=== PATIENT | female | born 2000 | race African-American/Black ===

== ENCOUNTER 2025-09-18 13:02 | Emergency (ER) | payer SELFPAY ==
--- NOTE | ~2025-09-18 | XR_ITS ---
EXAMINATION: XR chest 2V DATE: 09/18/2025 14:18 INDICATION: Chest pain, shortness of breath. TECHNIQUE: Frontal and lateral views of the chest were obtained. COMPARISON: None. FINDINGS: Heart size is normal. Lungs are free of acute process IMPRESSION: 1. No acute findings. Reviewed, dictated and finalized at location T. URY CRACKING TESTER IMPRESSION: 1. No acute findings.
--- OUTSIDE RECORDS SUMMARY | 2025-09-18 12:00 | XMS_ITS | Encounter Summary ---
Author Organization [facility] Healthcare Address [address] [place] [address] Care Team Providers Care Career And Transition Teacher Name Role Phone Unknown, Notinfile Primary Care Provider Unavail able Reason for Visit * Reason Comments Chest Pain Chest pains, chest f eels heavy, both ears feel full, headaches in the back of head x about a week and half Encounter Details Date Type Department Care Team (Late st Contact Info) Description 09/18/2025 12:00 PM TALENT ACQUISITION ADMINISTRATOR Office Visit [facility] Convenient Care at [address] [address] Fermín Parikh NP [address] [place] [address] [address] [place] [address] Chest tightness (Primary Dx); Nonintractable headache, unspecified chronicity pattern, unspecified headache type; Sensation of fullness in ear, bilateral; Shortness of breath Social History Tobacco Use Types Packs/Day Years Used Date Smoking Tobacco: Never Assessed Comments Unknown Sex and Gender Information Value Date Recorded Sex Assigned at Not on file Legal Sex Female 1:59 PM CDT Gender Identity Not on file Sexual Orientation Not on file documented as of this encounter Last Filed Vital Signs Vital Sign Reading Time Taken Comments Blood Pressure 119/80 09/18/2025 12:05 PM TALENT ACQUISITION ADMINISTRATOR Pulse 76 09/18/2025 12:05 PM TALENT ACQUISITION ADMINISTRATOR Temperature 37.4 C (99.3 F) 09/18/2025 12:05 PM TALENT ACQUISITION ADMINISTRATOR Respiratory Rate 16 09/18/2025 12:05 PM TALENT ACQUISITION ADMINISTRATOR Oxygen Saturation 99% 09/18/2025 12:05 PM TALENT ACQUISITION ADMINISTRATOR Inhaled Oxygen Concentration - - Weight 72.1 kg (159 lb) 09/18/2025 12:05 PM TALENT ACQUISITION ADMINISTRATOR Height - - Body Mass Index - - documented in this encounter Functional Status documented as of this encounter Plan of Treatment Not on file documented as of this encounter Procedures Procedure Name Priority Date/Time Associated Diagnosis Comments ELECTROCARDIOGRAM REPORT Routine 025 12:24 PM TALENT ACQUISITION ADMINISTRATOR Chest tightness documented in this encounter Results * XR Chest PA Lateral 2 Views (09/18/2025 12:36 PM TALENT ACQUISITION ADMINISTRATOR) Anatomical Region Laterality Modality Body, Chest N/A Digital Radiogra phy 09/18/2025 12:4 1 PM TALENT ACQUISITION ADMINISTRATOR Impressions 09/18/2025 12:41 PM TALENT ACQUISITION ADMINISTRATOR 1. No acute findings or infiltrate. Electronically signed by: Jonny Roca M.D. Narrative 09/18/2025 12:41 PM TALENT ACQUISITION ADMINISTRATOR EXAMINATION: XR CHEST PA LATERAL 2 VIEWS HISTORY: cough chest tightness TECHNIQUE: 2 view chest COMPARISON: No prior FINDINGS: Normal cardiomediastinal silhouette. Pulmonary vasculature is normal. No infiltrate or effusion. Costophrenic angles are sharp. No acute osseous findings. Procedure Note Jonny Roca MD - 09/18/2025 EXAMINATION: XR CHEST PA LATERAL 2 VIEWS HISTORY: cough chest tightness TECHNIQUE: 2 view chest COMPARISON: No prior FINDINGS: Normal cardiomediastinal silhouette. Pulmonary vasculature is normal. No infiltrate or effusion. Costophrenic angles are sharp. No acute osseous findings. IMPRESSION: 1. No acute findings or infiltrate. Electronically signed by: Jonny Roca M.D. us Fermín Parikh NP IMG XR PROCEDURES Final Result * Electrocardiogram Report (09/18/2025 12:24 PM TALENT ACQUISITION ADMINISTRATOR) us Fermín Parikh NP ECG ORDERABLES Final Result documented in this encounter Visit Diagnoses Diagnosis Chest tightness- Primary Other chest pain Nonintractable headache, unspecified chronicity pattern, unspecified headache type Sensation of fullness in ear, bilateral Shortness of breath Chest tightness Other chest pain documented in this encounter Care Teams Career And Transition Teacher Relationship Specialty Start Date End Date Unknown, Notinfile PCP - General 06/13/24 documented as of this encounter
--- OUTSIDE RECORDS SUMMARY | 2025-09-18 12:25 | XMS_ITS | Encounter Summary ---
Author Organization [facility] Healthcare Address [address] [place] [address] Care Team Providers Care Quality Control Manager Name Role Phone Unknown, Notinfile Primary Care Provider Unavail able Encounter Details Date Type Department Care Team (Latest Contact Info) Description 09/18/2025 12:25 PM RN CLINICAL RESEARCH Ancillary Procedure [facility] Medical Group Imaging at [address] [address] Chest tightness Social History Tobacco Use Types Packs/Day Years Used Date Smoking Tobacco: Never Assessed Comments Unknown Sex and Gender Information Value Date Recorded Sex Assigned at Not on file Legal Sex Female 1:59 PM CDT Gender Identity Not on file Sexual Orientation Not on file documented as of this encounter Functional Status documented as of this encounter Plan of Treatment Not on file documented as of this encounter Procedures Procedure Name Priority Date/Time Associated Diagnosis Comments XR CHEST PA LATERAL 2 VIEWS Schedule CARLO, Read CARLO (Appt Today, Awaiting Results) 09/18/2025 12:36 PM RN CLINICAL RESEARCH Chest tightness documented in this encounter Results * XR Chest PA Lateral 2 Views (09/18/2025 12:36 PM RN CLINICAL RESEARCH) Anatomical Region Laterality Modality Body, Chest N/A Digital Radiogra phy 09/18/2025 12:4 1 PM RN CLINICAL RESEARCH Impressions 09/18/2025 12:41 PM RN CLINICAL RESEARCH 1. No acute findings or infiltrate. Electronically signed by: Jonny Roca M.D. Narrative 09/18/2025 12:41 PM RN CLINICAL RESEARCH EXAMINATION: XR CHEST PA LATERAL 2 VIEWS [...] infiltrate. Electronically signed by: Jonny Roca M.D. Fermín Parikh WEBSITE DEVELOPER IMG XR PROCEDURES Final Result documented in this encounter Visit Diagnoses Diagnosis Chest tightness Other chest pain documented in this encounter Care Teams Quality Control Manager Relationship Specialty Start Date End Date Unknown, Notinfile PCP - General 06/13/24 documented as of this encounter
[2025-09-18 13:03] VITALS: BP 169/91; PULSE 106; RESP 18; TEMP 37.2; O2SAT 100
--- NOTE | 2025-09-18 13:10 | ECG_ITS ---
Test Date: 2025-09-18 13:13:54 Measurements Intervals Icard Rate: 102 P: 70 NC: 143 QRS: 19 QRSD: 78 T: -2 QT: 339 QTc: 442 Interpretive Statements SINUS TACHYCARDIA LOW QRS VOLTAGE IN PRECORDIAL LEADS [QRS DEFLECTION < 1.0 mV IN CHEST LEADS] ABNORMAL RHYTHM ECG No previous ECG available for comparison Electronically Signed On 09-18-2025 14:49:36 [employer] SYSTEMS ENGINEER by Omar Sifuentes M.D.
[2025-09-18 13:52] LABS: Hematocrit 37.2 % (37.0-47.0); Hemoglobin 12.1 g/dL (12.0-15.0); Immature Granulocyte Percent A 0.2 % (0-0.5); Lymphocytes Absolute Auto 1.83 K/mm3 (0.9-3.2); Mean Corpuscular HGB Conc 32.5 g/dl (32-36); Mean Corpuscular Hemoglobin 29.1 pg (26-34); Mean Corpuscular Volume 89.4 fl (80-100); Nucleated Red Blood Cells Absolute Auto 0.000 K/mm3 (0.0-0.012); Nucleated Red Blood Cells Perc 0.0 % (0.0-0.2); Platelet Count Result 257 k/mm3 (150-375); Red Blood Count 4.16 M/mm3 (4.2-5.4); White Blood Count 6.4 K/mm3 (4.5-10.0)
--- NOTE | 2025-09-18 13:52 | ED.CHESTPAIN ---
HPI - Chest Pain General Chief Complaint: Chest Pain Stated Complaint: chest pain Time Seen by Provider: 09/18/25 13:50 Focused HPI: Patient is a 24-year-old female who presents the ED with report of midsternal chest pain. Patient reports having pain intermittently for the past 1 week. States pain is described as a heaviness. Denies significant aggravating or alleviating factors. Does note that she has been under increased stress this week. Reports feeling short of breath with the pain, as well as a mild cough. Denies fevers, pain or swelling in her legs. GENERAL: Well-appearing, well-nourished, and in no acute distress. HEAD: Normocephalic, atraumatic. CHEST: Clear to auscultation. ?No respiratory distress. HEART: Regular rate and rhythm.? MSK: No significant chest wall tenderness NEURO: ?Alert and oriented x3. Patient screened in triage and initial orders placed.? ?Additional care and disposition to be based upon?diagnostic testing and treatment. Source: patient Mode of arrival: ambulatory Limitations: no limitations Related Data Allergies Allergy/AdvReac Type Severity Reaction Status Date / Time No Known Allergies Allergy Verified 09/18/25 19:02 Course Vital Signs Vital signs: Vital Signs Temperature 98.9 F 09/18/25 13:03 Pulse Rate 106 H 09/18/25 13:03 Respiratory Rate 18 09/18/25 13:03 Blood Pressure 169/91 H 09/18/25 13:03 Pulse Oximetry 100 09/18/25 13:03 Oxygen Delivery Room Air 09/18/25 13:03 Temperature 98.9 F 09/18/25 13:03 Pulse Rate 111 H 09/18/25 16:41 Respiratory Rate 20 09/18/25 16:41 Blood Pressure 140/83 09/18/25 16:41 Pulse Oximetry 99 09/18/25 16:41 Oxygen Delivery Room Air 09/18/25 16:41 MDM - Chest Pain MDM Narrative Medical decision making narrative: MSE by VANESSA in triage. Lab Data 09/18/25 13:45 09/18/25 13:45 Labs: Lab Results 09/18/25 09/18/25 Range/Units 13:45 17:23 WBC 6.4 (4.5-10.0) K/mm3 RBC 4.16 L (4.2-5.4) M/mm3 Hgb 12.1 (12.0-15.0) g/dL Hct 37.2 (37.0-47.0) % MCV 89.4 (80-100) fl MCH 29.1 (26-34) pg MCHC 32.5 (32-36) g/dl RDW 12.1 (11.5-14.5) % Plt Count 257 (150-375) k/mm3 MPV 10.9 H (7.4-10.4) fl Immature Gran % (Auto) 0.2 (0-0.5) % Neut % (Auto) 62.3 (45.5-73.1) % Lymph % (Auto) 28.8 (18.3-44.2) % [place] % (Auto) 6.3 (2.6-8.5) % Eos % (Auto) 1.9 (0-4.4) % Baso % (Auto) 0.5 (0.2-1.2) % Lymph # (Auto) 1.83 (0.9-3.2) K/mm3 [place] # (Auto) 0.4 (0.1-0.6) K/mm3 Eos # (Auto) 0.1 (0-0.3) K/mm3 Baso # (Auto) 0.0 (0.0-0.1) K/mm3 Abs Immat Gran (auto) 0.01 (0.00-0.031) K/mm3 Absolute Neuts (auto) 4.0 (1.3-6.7) K/mm3 Absolute Nucleated RBC 0.000 (0.0-0.012) K/mm3 Nucleated RBC % 0.0 (0.0-0.2) % PT 13.6 (11.1-14.7) Seconds INR 1.0 APTT 32.1 (22.3-36.8) Seconds D-Dimer < 0.27 (<0.48) ug/mL Sodium 136 L (137-145) mmol/L Potassium 3.8 (3.4-5.0) mmol/L Chloride 102 (98-107) mmol/L Carbon Dioxide 24 (22-30) mmol/L Anion Gap 10 (4-12) mmol/L BUN 7 (7-17) mg/dL Creatinine 0.88 (0.7-1.0) mg/dL Estim Creat Clear Calc 81 ml/min Estimated GFR > 60 (59 - ) Glucose 99 (65-110) mg/dL Calcium 9.3 (8.4-10.2) mg/dL Total Bilirubin 0.5 (0.2-1.3) mg/dL AST 31 (14-36) U/L ALT 13 (6-35) U/L Alkaline Phosphatase 88 (38-126) U/L Troponin I < 0.012 < 0.012 (0.000-0.034) ng/mL Total Protein 8.4 H (6.3-8.2) g/dL Albumin 4.8 (3.5-5.1) g/dL Lipase 49 (23-300) U/L Discharge Plan Discharge Clinical Impression: Chest pain, URI (upper respiratory infection) Patient Disposition: Home Condition: Stable Instructions: Chest Pain (ED), Viral Syndrome (ED) Additional Instructions: Patient has been advised to remain well-hydrated, get plenty of rest. Take Tylenol or Motrin [id number] for pain as needed. Return to the emergency department if symptoms worsen. Other reasons to return include shortness of breath, abdominal pain with nausea and vomiting, weakness, numbness/tingling, or any other symptoms that are concerning to you. Follow up with primary care doctor. Patient Language: Tristanian Follow-up/Referrals: PHYSICIAN,HYDRANT SETTER [Primary Care Provider, Internal Medicine]
[2025-09-18 14:03] LABS: INR 1.0; Partial Thromboplastin Time 32.1 Seconds (22.3-36.8); Prothrombin Time 13.6 Seconds (11.1-14.7)
[2025-09-18 14:09] LABS: Alanine Aminotransferase 13 U/L (6-35); Albumin Level 4.8 g/dL (3.5-5.1); Alkaline Phosphatase 88 U/L (38-126); Anion Gap 10 mmol/L (4-12); Aspartate Amino Transferase 31 U/L (14-36); Bilirubin,Total 0.5 mg/dL (0.2-1.3); Blood Urea Nitrogen 7 mg/dL (7-17); Calcium 9.3 mg/dL (8.4-10.2); Carbon Dioxide 24 mmol/L (22-30); Chloride 102 mmol/L (98-107); Estimated CRCL calculation 81 ml/min; Estimated Glomerular Filt Rate > 60; Glucose 99 mg/dL (65-110); Lipase 49 U/L (23-300); Potassium 3.8 mmol/L (3.4-5.0); Sodium 136 mmol/L (137-145); Total Protein 8.4 g/dL (6.3-8.2)
[2025-09-18 14:20] LABS: Troponin I < 0.012 ng/mL (0.000-0.034)
[2025-09-18 16:14] VITALS: BP 131/72; PULSE 85; RESP 20; O2SAT 99
[2025-09-18 16:41] VITALS: BP 140/83; PULSE 111; RESP 20; O2SAT 100; O2SAT 99
--- NOTE | 2025-09-18 17:23 | ECG_ITS ---
Test Date: 2025-09-18 17:27:00 Measurements Intervals [place] Rate: 83 P: 61 CA: 153 QRS: 10 QRSD: 73 T: -1 QT: 357 QTc: 420 Interpretive Statements SINUS RHYTHM LOW QRS VOLTAGE IN PRECORDIAL LEADS [QRS DEFLECTION < 1.0 mV IN CHEST LEADS] OTHERWISE NORMAL ECG Compared to ECG 09/18/2025 13:13:54 HEART RATE REDUCED, NO OTHER DIFFERENCE Electronically Signed On 09-19-2025 07:51:21 [employer] by Jonny Woodward M.D.
[2025-09-18 17:52] LABS: Troponin I < 0.012 ng/mL (0.000-0.034)
--- NOTE | 2025-09-18 18:29 | ED_ITS ---
HPI - General Adult General Chief complaint: Chest Pain Stated complaint: chest pain Time Seen by Provider: 09/18/25 13:50 Source: patient Mode of arrival: ambulatory Limitations: no limitations History of Present Illness HPI narrative: 24-year-old female presenting with substernal chest pain congestion for the last week. She reports the pain radiates to her shoulder as well as some postnasal drip. Denies fevers/chills, cough, abdominal pain, headache, nausea/vomiting/diarrhea. No history of asthma or smoking. Review of Systems 2 Review of Systems: All systems reviewed & are unremarkable except as noted in HPI and below Exam 2 Narrative: GENERAL: Well-appearing, well-nourished, and in no acute distress. HEAD: Normocephalic, atraumatic. EYES: PERRLA and EOMI. ENT: Nares clear, no rhinorrhea or epistaxis. Mucous membranes moist. Oropharynx without tonsillar hypertrophy exudate or other lesions. Bilateral TMs pearly ortega non-bulging NECK: Supple. No adenopathy or masses. No carotid bruits or JVD CHEST: Clear to auscultation. No respiratory distress. No wheezes rales or rhonchi HEART: Regular rate and rhythm. No murmur heard. Normal peripheral pulses. ABDOMEN: Soft, nontender, nondistended, normal active bowel sounds. EXTREMITIES: Normal range of motion. No edema. SKIN: Warm, dry, no rash. NEURO: No focal deficits. Alert and oriented x3. PSYCH: Normal mood and affect Course Vital Signs Vital signs: Vital Signs Temperature 98.9 F 09/18/25 13:03 Pulse Rate 106 H 09/18/25 13:03 Respiratory Rate 18 09/18/25 13:03 Blood Pressure 169/91 H 09/18/25 13:03 Pulse Oximetry 100 09/18/25 13:03 Oxygen Delivery Room Air 09/18/25 13:03 Temperature 98.9 F 09/18/25 13:03 Pulse Rate 111 H 09/18/25 16:41 Respiratory Rate 20 09/18/25 16:41 Blood Pressure 140/83 09/18/25 16:41 Pulse Oximetry 99 09/18/25 16:41 Oxygen Delivery Room Air 09/18/25 16:41 Medical Decision Making [facility] Narrative Medical decision making narrative: 24-year-old female presenting with substernal chest pain and congestion for the last week. She reports the pain is radiating to her shoulder as well as some postnasal drip. Denies fevers/chills, cough, abdominal pain, headache, nausea/vomiting/diarrhea. No history of asthma or smoking. Patient's EKGs and labs are without significant high risk changes. EKG w/o acute ischemic changes. Troponin negative. Cardiac risk factors reviewed. HEART score = 0. Patient is felt likely low risk for ACS and reasonable for further risk stratification testing as an outpatient. Pain was not sudden or maximal in onset without tearing or ripping quality. No other signs or symptoms to suggest aortic dissection. A low-risk Wells criteria is noted, PE is felt to be unlikely, D- dimer WNL. No pneumonia seen on evaluation today. Patient is felt to be a reasonable candidate for continued evaluation as an outpatient. Given reasons to return. Medical Records Medical records reviewed: Yes I reviewed the external patient's medical records. Vital Signs Vital Signs: Vital Signs Temperature 98.9 F 09/18/25 13:03 Pulse Rate 106 H 09/18/25 13:03 Respiratory Rate 18 09/18/25 13:03 Blood Pressure 169/91 H 09/18/25 13:03 Pulse Oximetry 100 09/18/25 13:03 Oxygen Delivery Room Air 09/18/25 13:03 Temperature 98.9 F 09/18/25 13:03 Pulse Rate 111 H 09/18/25 16:41 Respiratory Rate 20 09/18/25 16:41 Blood Pressure 140/83 09/18/25 16:41 Pulse Oximetry 99 09/18/25 16:41 Oxygen Delivery Room Air 09/18/25 16:41 Lab Data Lab results reviewed: Yes I reviewed the patient's lab results. 09/18/25 13:45 09/18/25 13:45 Labs: Lab Results 09/18/25 09/18/25 Range/Units 13:45 17:23 WBC 6.4 (4.5-10.0) K/mm3 RBC 4.16 L (4.2-5.4) M/mm3 Hgb 12.1 (12.0-15.0) g/dL Hct 37.2 (37.0-47.0) % MCV 89.4 (80-100) fl MCH 29.1 (26-34) pg MCHC 32.5 (32-36) g/dl RDW 12.1 (11.5-14.5) % Plt Count 257 (150-375) k/mm3 MPV 10.9 H (7.4-10.4) fl Immature Gran % (Auto) 0.2 (0-0.5) % Neut % (Auto) 62.3 (45.5-73.1) % Lymph % (Auto) 28.8 (18.3-44.2) % [place] % (Auto) 6.3 (2.6-8.5) % Eos % (Auto) 1.9 (0-4.4) % Baso % (Auto) 0.5 (0.2-1.2) % Lymph # (Auto) 1.83 (0.9-3.2) K/mm3 [place] # (Auto) 0.4 (0.1-0.6) K/mm3 Eos # (Auto) 0.1 (0-0.3) K/mm3 Baso # (Auto) 0.0 (0.0-0.1) K/mm3 Abs Immat Gran (auto) 0.01 (0.00-0.031) K/mm3 Absolute Neuts (auto) 4.0 (1.3-6.7) K/mm3 Absolute Nucleated RBC 0.000 (0.0-0.012) K/mm3 Nucleated RBC % 0.0 (0.0-0.2) % PT 13.6 (11.1-14.7) Seconds INR 1.0 APTT 32.1 (22.3-36.8) Seconds D-Dimer < 0.27 (<0.48) ug/mL Sodium 136 L (137-145) mmol/L Potassium 3.8 (3.4-5.0) mmol/L Chloride 102 (98-107) mmol/L Carbon Dioxide 24 (22-30) mmol/L Anion Gap 10 (4-12) mmol/L BUN 7 (7-17) mg/dL Creatinine 0.88 (0.7-1.0) mg/dL Estim Creat Clear Calc 81 ml/min Estimated GFR > 60 (59 - ) Glucose 99 (65-110) mg/dL Calcium 9.3 (8.4-10.2) mg/dL Total Bilirubin 0.5 (0.2-1.3) mg/dL AST 31 (14-36) U/L ALT 13 (6-35) U/L Alkaline Phosphatase 88 (38-126) U/L Troponin I < 0.012 < 0.012 (0.000-0.034) ng/mL Total Protein 8.4 H (6.3-8.2) g/dL Albumin 4.8 (3.5-5.1) g/dL Lipase 49 (23-300) U/L Imaging Data Attestation: I personally reviewed and interpreted this imaging study as follows: Radiologist's impression: ITS Impressions Chest X-Ray 09/18/25 14:20 IMPRESSION: 1. No acute findings. ECG Data EKG #1: ECG completion date: 09/18/25 ECG completion time: 13:13 EKG Interpretation: normal rate, sinus rhythm and no ST changes Discharge Plan Discharge Clinical Impression: Chest pain, URI (upper respiratory infection) Patient Disposition: Home Condition: Stable Instructions: Chest Pain (ED), Viral Syndrome (ED) Additional Instructions: Patient has been advised to remain well-hydrated, get plenty of rest. Take Tylenol or Motrin [id number] for pain as needed. Return to the emergency department if symptoms worsen. Other reasons to return include shortness of breath, abdominal pain with nausea and vomiting, weakness, numbness/tingling, or any other symptoms that are concerning to you. Follow up with primary care doctor. Patient Language: Slovenian Follow-up/Referrals: PHYSICIAN,DECALER [Primary Care Provider, Internal Medicine] Quality HEART score for chest pain patients History: slightly suspicious ECG: normal Age: < or = to 45 years Risk factors: no risk factors known Troponin: < or = to 1x normal limit Heart score: 0
[2025-09-18] MEDS: ACETAMINOPHEN 500 MG TABLET 1000 MG PO (19:00)
[2025-09-18] MEDS: KETOROLAC 30 MG/ML VIAL (*BKC) IM (19:01)
--- OUTSIDE RECORDS SUMMARY | 2025-09-18 19:03 | XMS_ITS | Encounter Summary ---
Author Organization [facility] Address [address] [place] [address] Care Team Providers Care Brick Unloader Tender Name Role Phone Unavailable Primary Care Provider Unavailabl e Source Comments In the event that this information is protected by federal Confidentiality ofSubstance Use DisorderPatient Records, 42 CFR Part 2 prohibits theunauthorized disclosure of these records.[facility] Encounter Details Date Type Department Care Team (Late st Contact Info) Description 09/14/2022 Lab Requisition [place] Pathology [address] [place], [place] [id number] Judy Aguirre, JOAO [address] [address] Unspecified sexually transmitted disease Social History Tobacco Use Types Packs/Day Years Used Date Smoking Tobacco: Never Assessed Comments Unknown Sex and Gender Information Value Date Recorded Sex Assigned at Not on file Legal Sex Female 6:09 PM TOWER EXCAVATOR OPERATOR Gender Identity Not on file Sexual Orientation Not on file documented as of this encounter Plan of Treatment Not on file documented as of this encounter Procedures Procedure Name Priority Date/Time Associated Diagnosis Comments HEALTHLAB VENIPUNCTURE (CDH/DCH/KH/VWH) Routine 09/14/2022 12:17 PM TOWER EXCAVATOR OPERATOR Unspecified sexually transmitted disease HEPATITIS C ANTIBODY, REFLEX CONFIRMATION (WEST/NORTH/CENTRAL/P H) Routine 09/14/2022 12:17 PM TOWER EXCAVATOR OPERATOR Unspecified sexually transmitted disease HIV ANTIGEN/ANTIBODY,REFL EX CONFIRMATION Routine 09/14/2022 12:17 PM TOWER EXCAVATOR OPERATOR Unspecified sexually transmitted disease HEPATITIS B CORE AB, IGM Routine 09/14/2022 12:17 PM TOWER EXCAVATOR OPERATOR Unspecified sexually transmitted disease HEPATITIS B SURFACE ANTIGEN Routine 09/14/2022 12:17 PM TOWER EXCAVATOR OPERATOR Unspecified sexually transmitted disease SYPHILIS,RPR SCREEN,REFLEX TITER/CONFIRMATION ([facility]) Routine 09/14/2022 12:17 PM TOWER EXCAVATOR OPERATOR Unspecified sexually transmitted disease documented in this encounter Results * *HealthLab Venipuncture ([facility]/DCH/KH/VWH) (09/14/2022 12:17 PM TOWER EXCAVATOR OPERATOR) Pathologist [facility] Venipucture Performed? Yes 09/14/2022 8:04 PM TOWER EXCAVATOR OPERATOR [facility] Blood VEIN SPECIMEN / Unknown 09/14/2022 12:17 PM TOWER EXCAVATOR OPERATOR 09/14/2022 6:09 PM TOWER EXCAVATOR OPERATOR Judy Aguirre NP CHEMISTRY ORDERABLES Final Resu lt Performing Organization Address [facility] Co de Phone Number [facility] [address] [place] [address] * Hepatitis B Surface Ag (09/14/2022 12:17 PM TOWER EXCAVATOR OPERATOR) Pathologist [facility] Hepatitis B Surface Antigen Non-reacti ve Non-react vahid 09/15/2022 3:49 AM TOWER EXCAVATOR OPERATOR [facility] Comment:This assay was perfo rmed using [employer] reagents and test kits. Values obtained with other assay methods or kits cannot be used interchangeably. Blood VEIN SPECIMEN / Unknown 09/14/2022 12:17 PM TOWER EXCAVATOR OPERATOR 09/15/2022 3:19 AM TOWER EXCAVATOR OPERATOR Judy Aguirre NP IMMUNOLOGY ORDERABLES Final Res ult Performing Organization Address [facility] Co de Phone Number [facility] [address] [place] [address] * Syphilis, RPR Screen, Reflex Titer/FTA ([facility]/DCH/KH/PH) (09/14/2022 12:17 PM TOWER EXCAVATOR OPERATOR) Pathologist [facility] RPR Screen Nonreactive Nonreactive 09/15/2022 1:55 PM TOWER EXCAVATOR OPERATOR [facility] Blood VEIN SPECIMEN / Unknown 09/14/2022 12:17 PM TOWER EXCAVATOR OPERATOR 09/15/2022 3:19 AM TOWER EXCAVATOR OPERATOR Judy Aguirre EXPERIENCE SPECIALIST IMMUNOLOGY ORDERABLES Final Res ult Performing Organization Address City/[facility]/ZIP Co de Phone Number [facility] [address], [place] [id number] * HIV 1/2 Antigen/Antibody,Reflex Confirmation (09/14/2022 12:17 PM TOWER EXCAVATOR OPERATOR) HIV Ag/Ab NON-REACT VAHID NON-REACT VAHID 09/16/2022 3:38 AM TOWER EXCAVATOR OPERATOR [facility] JOLENE TEJADA Comment: HIV-1 antigen and HIV-1/HIV-2 antibodies were not detected. There is no laboratory evidence of HIV infection. PLEASE NOTE: This information has been disclosed to you from records whose confidentiality may be protected by state law. If your state requires such protection, then the state law prohibits you from making any further disclosure of the information without the specific written consent of the person to whom it pertains, or as otherwise permitted by law. A general authorization for the release of medical or other information is NOT sufficient for this purpose. For additional information please refer to http://education.[employer]/faq/ZBH934 (This link is being provided for informational/ educational purposes only.) The performance of this assay has not been clinically validated in patients less than 2 years old. Blood VEIN SPECIMEN / Unknown 09/14/2022 12:17 PM TOWER EXCAVATOR OPERATOR 09/15/2022 3:19 AM TOWER EXCAVATOR OPERATOR Narrative [employer] JOLENE TEJADA - 09/16/2022 3:38 AM TOWER EXCAVATOR OPERATOR Performing Organization Information: Site ID: CB Name: [facility] Address: [address] [place] [id number] Director: Victoriano Piña M.D. Judy Aguirre NP CHEMISTRY ORDERABLES Final Resu lt Performing Organization Address [facility]/ZIP Co de Phone Number [facility]OL[facility] TEJ[facility] [address] [place], [place] [id number] * Hepatitis B Core Ab, IgM ([facility]) (09/14/2022 12:17 PM TOWER EXCAVATOR OPERATOR) Hepatitis B Core IgM Antibody Negative Negative 09/15/2022 9:16 PM TOWER EXCAVATOR OPERATOR [facility] Blood VEIN SPECIMEN / Unknown 09/14/2022 12:17 PM TOWER EXCAVATOR OPERATOR 09/15/2022 3:19 AM TOWER EXCAVATOR OPERATOR us Judy Aguirre EXPERIENCE SPECIALIST IMMUNOLOGY ORDERABLES Final Res ult [facility] [address] [place] [address] * Hepatitis C Antibody,Reflex Confirmation (West/North/Central/) (09/14/2022 12:17 PM TOWER EXCAVATOR OPERATOR) Hepatitis C Antibody Non-reacti ve Non-react vahid 09/15/2022 3:49 AM TOWER EXCAVATOR OPERATOR [facility] Comment:Antibodies to HCV No t Detected, does not exclude the possibility of exposure to HCV. Blood VEIN SPECIMEN / Unknown 09/14/2022 12:17 PM TOWER EXCAVATOR OPERATOR 09/15/2022 3:19 AM TOWER EXCAVATOR OPERATOR us Judy Aguirre NP IMMUNOLOGY ORDERABLES Final Res ult Performing Organization Address City/[facility]/ZIP Co de Phone Number [facility] [address] [place] [address] documented in this encounter Visit Diagnoses Diagnosis Unspecified sexually transmitted disease documented in this encounter
--- OUTSIDE RECORDS SUMMARY | 2025-09-18 19:03 | XMS_ITS | Clinical Summary ---
Author Organization [facility] Address [address] [place] [address] Care Team Providers Care Physician/Internist Name Role Phone Lisette Hairston MD Primary Care Provider [phone] Allergies No known active allergies Medications clindamycin-evette zoyl peroxide 1-5 % TOP Gel topical gel apply topically every morning. 35 g 3 1 Active Additional Information Patient not taking.Reported on 05/04/2023 hydrocortisone (HYTONE) 2.5 % TOP topical ointment APPLY TOPICALLY TWO TIMES DAILY DIRECTED 20 g 3 3 Active triamcinolone acetonide (KENALOG) 0.1 % TOP topical ointment APPLY TOPICALLY TO RASH ON HANDS AND ARMS TWICE DAILY DIRECTED 30 g 3 Active Active Problems Problem Noted Date Diagnosed Date Intrinsic eczema 05/04/2023 Immunizations Immunization Administration Dates Next Due DAPTACEL - DIPH,PERTUS(ACEL) ,TET PED VACCINE 03/03/2004,07/11/2003,01/31/2003 DTaP, Unspecified Formula 09/24/2008,04/21/2003 Haqchbbvx-nkczszm-ljqylkjqc Pertussus Injection (peds-addis) 03/03/2004,07/11/2003,01/31/2003 Gardasil - Human Papilloma V irus Vaccine 08/12/2015 Gardasil 9 - Human Papilloma Virus Vaccine 06/22/2016,10/14/2015 Hepatitis B Vaccine Injection (PEDS) 07/11/2003, 2002 Hepatitis B, Unspecified Formula 01/31/2003 Hib, Unspecified Formula 03/03/2004,06/30,04/21/2003,01/31 Influenza, Seasonal Injectab le, Preserv Free 07/16/2014 Influenza, Split Virus, 3 Ye ars And Above 08/07/2009 Influenza, injectable, quadr ivalent, preserv free 08/24/2017,08/12/2015 MENACTRA - MENINGOCOCCAL VAC CINE A,C,Y,W-135 50 MCG 05/13/2019,07/16/2014 Measles, Mumps and Rubella 09/24/2008,12/29/2003 OPV 04/21/2003,01/31/2003 PREVNAR 7 - PNEUMOCOCCAL 7-V ALPS VACCINE 07/11/2003,04/21/2003,01/31/2003 Polio, Unspecified Formula 09/24/2008 Oaguodp-Bvwayirlxr-Rjjaoocfn Pertussis (Tdap) Injection 08/12/2015 Tuberculosis (PPD) Skin Test (Ambulatory) 07/16/2014 Varicella 09/24/2008,03/03/2004 inactivated poliovirus vacci ne injection/oral 03/03/2004 Family History Medical History Relation Comments Diabetes Maternal Grandmother Relation Status Comments Father Alive Maternal Grandmother Mother Alive Social History Tobacco Use Types Packs/Day Years Used Date Smoking Tobacco: Never Smokeless Tobacco: Never Social Connections Answer Date Recorded Conversations with friends/family/neighbors per week Not on file 01/11/2021 Housing Stability Answer Date Recorded Mortgage Payment Concerns? Not on file 05/07 [address] of Places Lived in the Last Year Not on f ile 05/07/2021 Unstable Housing? 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 WORKER Gender Identity Not on file Sexual Orientation Not on file Last Filed Vital Signs Vital Sign Reading Time Taken Comments Blood Pressure 102/78 12/07/2020 3:07 PM TIN WORKER Pulse 89 12/07/2020 3:07 PM TIN WORKER Temperature 36.5 C (97.7 F) 12/07/2020 3:07 PM TIN WORKER Respiratory Rate 16 12/07/2020 3:07 PM TIN WORKER Oxygen Saturation 100% 12/07/2020 3:07 PM TIN WORKER Inhaled Oxygen Concentration - - Weight 61.7 kg (136 lb 0.4 oz) 05/04/2023 1:08 P M CDT Height 153.7 cm (5' 0.51) 05/04/2023 1:08 PM CD T Body Mass Index 26.12 05/04/2023 1:08 PM CDT Plan of Treatment Health Maintenance Due Date Last Done Comments HIV Screening 2002 Hepatitis C Screening 2002 Screen for Cervical Cancer 2002 Chlamydia and Gonorrhea Screening 2018 Meningococcal B (1 of 2 - Standard) 2018 COVID-19 Vaccine (3 - season) 2025 07/11/2021, 05/31/2021 Influenza Vaccine (#1) 2025 7, 08/12/2015, 07/16/2014, Additional history exists DTaP,Tdap and Td Vaccines (7 - Td or Tdap) 08/12/2025 08/12/2015, 09/24/2008, 03/03/2004, Additional history exists Pneumococcal 7-64 Aged Out 07/11/2003, , 01/31/2003 No longer eligible based on patient's age to complete this topic HPV Vaccines Completed 06/22/2016, 09/29, 08/12/2015 RSV Vaccine (Pediatric) Aged Out No l onger eligible based on patient's age to complete this topic Insurance Care Teams Physician/Internist Relationship Specialty Start Date End Date Lisette Hairston MD [address] [place] [address] PCP - General Family Medicine 12/07/20
--- OUTSIDE RECORDS SUMMARY | 2025-09-18 19:03 | XMS_ITS | Clinical Summary ---
Author Organization [address] Address [address] [facility] [address] [place] [address] Care Team Providers Care Legal Compliance Officer Name Role Phone Unknown, Notinfile Primary Care Provider Unavail able Allergies No known active allergies Medications No known medications Active Problems No known active problems Encounters Date Type Department Care Team Description 09/18/2025 12:25 PM ACTIVITIES SPECIALIST Ancillary Procedure [facility] Imaging at [address] [phone] Chest tightness 09/18/2025 12:00 PM ACTIVITIES SPECIALIST Office Visit [facility] Con[facility]ient Care at [address] [phone] Fermín Parikh NP Chest tightness (Primary Dx); Nonintractable headache, unspecified chronicity pattern, unspecified headache type; Sensation of fullness in ear, bilateral; Shortness of breath from Last 3 Months Social History Tobacco Use Types Packs/Day Years Used Date Smoking Tobacco: Never Assessed Comments Unknown Sex and Gender Information Value Date Recorded Sex Assigned at Not on file Legal Sex Female 1:59 PM CDT Gender Identity Not on file Sexual Orientation Not on file Last Filed Vital Signs Vital Sign Reading Time Taken Comments Blood Pressure 119/80 09/18/2025 12:05 PM ACTIVITIES SPECIALIST Pulse 76 09/18/2025 12:05 PM ACTIVITIES SPECIALIST Temperature 37.4 C (99.3 F) 09/18/2025 12:05 PM ACTIVITIES SPECIALIST Respiratory Rate 16 09/18/2025 12:05 PM ACTIVITIES SPECIALIST Oxygen Saturation 99% 09/18/2025 12:05 PM ACTIVITIES SPECIALIST Inhaled Oxygen Concentration - - Weight 72.1 kg (159 lb) 09/18/2025 12:05 PM ACTIVITIES SPECIALIST Height - - Body Mass Index - - Plan of Treatment Health Maintenance Due Date Last Done Comments Cervical Cancer Screening 2002 Depression Screening 2002 Hepatitis C Screening 2002 Meningococcal B Vaccine (1 of 2 - Standard) 2018 Regular Well Visit/Exam 18-64 2020 Covid-19 Vaccine (3 - season) 2025 07/11/2021, 05/31/2021 Influenza Vaccine (#1) 2025 7, 08/12/2015, 07/16/2014, Additional history exists DTaP/Tdap/Td Vaccine (7 - Td or Tdap) 08/12/2025 08/12/2015, 09/24/2008, 03/03/2004, Additional history exists Hepatitis B Screening Completed 07/11/2003 , 01/31/2003, 2002 Pneumococcal vaccine <65 Aged Out 003, 04/21/2003, 01/31/2003 No longer eligible based on patient's age to complete this topic Varicella Vaccines Completed 09/24/2008, 03/03/2004 HPV Vaccines Completed 06/22/2016, 09/29, 08/12/2015 Procedures Procedure Name Priority Date/Time Associated Diagnosis Comments XR CHEST PA LATERAL 2 VIEWS Schedule CARLO, Read CARLO (Appt Today, Awaiting Results) 09/18/2025 12:36 PM ACTIVITIES SPECIALIST Chest tightness ELECTROCARDIOGRAM REPORT Routine 025 12:24 PM ACTIVITIES SPECIALIST Chest tightness from Last 3 Months Results * XR Chest PA Lateral 2 Views (09/18/2025 12:36 PM ACTIVITIES SPECIALIST) Anatomical Region Laterality Modality Body, Chest N/A Digital Radiogra phy 09/18/2025 12:4 1 PM ACTIVITIES SPECIALIST Impressions 09/18/2025 12:41 PM ACTIVITIES SPECIALIST 1. No acute findings or infiltrate. Electronically signed by: Jonny Roca M.D. Narrative 09/18/2025 12:41 PM ACTIVITIES SPECIALIST EXAMINATION: XR CHEST PA LATERAL 2 VIEWS [...] signed by: Jonny Roca M.D. Fermín Parikh NP IMG XR PROCEDURES Final Result * Electrocardiogram Report (09/18/2025 12:24 PM ACTIVITIES SPECIALIST) Fermín Parikh NP ECG ORDERABLES Final Result from Last 3 Months Insurance [employer] [facility] Care Teams Legal Compliance Officer Relationship Specialty Start Date End Date Unknown, Notinfile PCP - General 06/13/24
--- OUTSIDE RECORDS SUMMARY | 2025-09-18 19:03 | XMS_ITS | Encounter Summary ---
Author Organization [facility] Address [address] [place] [address] Care Team Providers Care Set Up Mechanic Heading Machines Name Role Phone Unavailable Primary Care Provider Unavailabl e Source Comments In the event that this information is protected by federal Confidentiality ofSubstance Use DisorderPatient Records, 42 CFR Part 2 prohibits theunauthorized disclosure of these records.[facility] Encounter Details Date Type Department Care Team (Latest Contact Info) Description 09/14/2022 Lab Requisition [place] Pathology [address], [place] [id number] Judy Aguirre, JOAO [id number] [address] Other specified noninflammatory disorders of vagina Social History Tobacco Use Types Packs/Day Years Used Date Smoking Tobacco: Never Assessed Comments Unknown Sex and Gender Information Value Date Recorded Sex Assigned at Not on file Legal Sex Female 6:09 PM 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/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 Gender Identity Not on file Sexual Orientation Not on file documented as of this encounter Plan of Treatment Not on file documented as of this encounter Procedures Procedure Name Priority Date/Time Associated Diagnosis Comments CT/GC AND TRICHOMONAS VAGINALIS (RRNA), SWAB Routine 09/14/2022 3:44 PM STEWARD/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 Other specified noninflammatory disorders of vagina VAGINITIS/VAGINOSIS , DNA PROBE ([facility]) Routine 09/14/2022 3:44 PM STEWARD/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 Other specified noninflammatory disorders of vagina documented in this encounter Results * (ABNORMAL) Vaginitis/Vaginosis, DNA Probe ([facility]) (09/14/2022 3:44 PM STEWARD/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) Renata sp. Detection, Direct Probe Negative Negative 09/15/2022 1:32 PM STEWARD/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 [facility] Gardnerella Vag. Detection, Direct Probe Positive(A) Negative 09/15/2022 1:32 PM STEWARD/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 [facility] Trichomonas vag. Detection, Direct Probe Negative Negative 09/15/2022 1:32 PM STEWARD/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 [facility] Vagina VAGINAL STRUCTURE / Unknown 09/14/2022 3:44 PM STEWARD/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 09/15/2022 2:51 AM STEWARD/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 us Judy Aguirre NP MICROBIOLOGY - GENERAL ORDERABL ES Final Result Performing Organization Address [facility] de Phone Number [facility] [address] [place], [place] [phone] * (ABNORMAL) CT/GC and Trichomonas vaginalis (rRNA), Swab (09/14/2022 3:44 PM STEWARD/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) Chlamydia trachomatis, PCR Positive(A) Negative 09/15/2022 1:40 PM STEWARD/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 [facility] Comment: Positive: Presence of C. trachomatis (by MAYRA) Chlamydia trachomatis RNA detected by PCR. Neisseria gonorrhoeae, PCR Negative Negative 09/15/2022 1:40 PM STEWARD/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 [facility] Trichomonas vaginalis Ribosomal Rna (Rrna) Negative Negative 09/15/2022 1:40 PM STEWARD/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 [facility] Swab URINE / Unknown 09/14/2022 3 :44 PM STEWARD/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 09/15/2022 2:50 AM STEWARD/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 us Judy Aguirre NP IMMUNOLOGY ORDERABLES Final Res ult Performing Organization Address [facility] Co de Phone Number [facility] [address] [place] [address] documented in this encounter Visit Diagnoses Diagnosis Other specified noninflammatory disorders of vagina documented in this encounter
--- OUTSIDE RECORDS SUMMARY | 2025-09-18 19:03 | XMS_ITS | Clinical Summary ---
Author Organization [facility] Address [address] [place] [id number] Phone Care Team Providers Care Consulting Sales Executive Name Role Phone Unavailable Primary Care Provider Unavailabl e Allergies No known active allergies Medications No known medications Active Problems Problem Noted Date Diagnosed Date Knee pain, right 02/16/2019 Curvature of spine 08/24/2017 Immunizations Immunization Administration Dates Next Due DTaP Vaccine(Daptacel)<7yo 09/24/2008,,07/11/2003,04/21,01/31/2003 Flu Vacc Triv (Fluzone/Flulava) 07/16/2014 Flu Vaccine(Afluria/Fluarix/Flulaval/Fluzo ne) 08/24/2017,08/12/2015 HPV Vaccine 9-valent (Gardasil 9) 06/22/2016, HPV Vaccine Quadravalent 3-Dose(Gardasil) 08/12/2015 Hep B Vaccine, Pediatric (Recombivax/Engerix-B Pediatric)tric) 07/11/2003,01/31/2003,2002 Hib 03/03/2004, 3,04/21/2003,01/31 MMR Vaccine(Priorix/M-M-R II) 09/24/2008, 004 Meningococcal Conjugate Vacc ine 4-valent(Menactra) 05/13/2019,07/16/2014 OPV 04/21/2003,01/31/2003 PPD Test 07/16/2014 Pneumococcal Conjugate 7 07/11/2003,04/21/2003,0 01/31/2003 Polio IPV Vaccine (IPOL) 09/24/2008,05/0 02/2004,04/21/2003,01/31 Polio, unspecified 09/24/2008 Tdap Vaccine(Adacel/Boostrix)=>7yo 08/12/2015 Varicella Vaccine(Varivax) 09/24/2008,03/03/2004 Family History Medical History Relation Comments No Known Problems Father Heart disease Maternal Grandfather No Known Problems Mother Diabetes Neg Hx Relation Status Comments Father Maternal Grandfather Mother Social History Tobacco Use Types Packs/Day Years Used Date Smoking Tobacco: Never Smokeless Tobacco: Never Alcohol Use Standard Drinks/Week Comments No 0 (1 standard drink = 0.6 oz pur e alcohol) Intimate Partner Violence Answer Date R ecorded Feels Safe at Home Not on file 02/15/2021 Comments No Sex and Gender Information Value Date Recorded Sex Assigned at Not on file Legal Sex Female 8:18 PM 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 Gender Identity Female 08/24/2017 3:35 PM CDT Sexual Orientation Straight 08/24/2017 3: 35 PM CDT Last Filed Vital Signs Vital Sign Reading Time Taken Comments Blood Pressure 120/90 07/18/2019 11:12 AM CDT Pulse 77 07/18/2019 11:12 AM CDT Temperature 36.7 C (98 F) 07/18/2019 11:12 AM CDT Respiratory Rate 20 01/15/2019 12:05 PM CDT Oxygen Saturation 98% 07/18/2019 11:12 AM CDT Inhaled Oxygen Concentration - - Weight 63.5 kg (140 lb) 07/18/2019 11:12 AM CDT Height 155 cm (5' 1.02) 07/18/2019 11:12 AM CDT Body Mass Index 26.43 07/18/2019 11:12 AM CDT Plan of Treatment Health Maintenance Due Date Last Done Comments Chlamydia & Gonorrhea Screening: Complete with Pap 2015 HIV Screening 2015 Annual Preventive Visit 05/13/2020 05/13/20 19, 05/09/2018, 08/24/2017, Additional history exists Cervical Cancer Screening (3 year): 21yo-29yo 2023 COVID-19 Vaccine (2024- season) 2025 Influenza Vaccine (#1) 2025 7, 08/12/2015, 07/16/2014 Tdap/DTaP/Td Vaccine (7 - Td or Tdap) 08/12/2025 08/12/2015, 09/24/2008, 03/03/2004, Additional history exists RSV 50+ and Currently (1 - 1-dose 75+ series) 2077 Pneumococcal Immunization 0-5 & High-Risk Patients 6-49 Aged Out 07/11/2003, 04/21/2003, 01/31/2003 No longer eligible based on patient's age to complete this topic HPV Vaccine Completed 06/22/2016, 09/29, 08/12/2015 Insurance [facility] [address] PPO
--- OUTSIDE RECORDS SUMMARY | 2025-09-18 19:03 | XMS_ITS | Clinical Summary ---
Author Organization [facility] Address [address] [place] [address] Care Team Providers Care Arabic Teacher Name Role Phone Unavailable Primary Care Provider Unavailabl e Source Comments In the event that this is information that is protected by federal Confidentiality of Substance UseDisorder Patient Records, 42 CFR Part 2 prohibits the unauthorized disclosure of these records.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
== END 2025-09-18 19:19 | disposition home or self-care (01) ==
LOC: ANHED 19:01
PROVIDERS: Emergency Medicine
DX: J06.9 Acute upper respiratory infection, unspecified (principal); R07.2 Precordial pain; R00.0 Tachycardia, unspecified
CPT/HCPCS: 36415; 71046; 80053; 83690; 84484; 85025; 85380; 85610; 85730; 93005; 99284; A9270; J1885